=== PATIENT | female | born 1965 | race Caucasian/White ===

== ENCOUNTER 2024-07-14 20:14 | Emergency (ER) | payer OTHER, SELFPAY ==
[2024-07-14 20:16] VITALS: PULSE 93; O2SAT 99; BMI 21.6
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
[2024-07-14 20:33] VITALS: BP 135/87; PULSE 102; RESP 18; TEMP 36.8; O2SAT 99
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
[2024-07-14 23:21] VITALS: BP 145/67; PULSE 67; RESP 19; TEMP 36.6; O2SAT 99
== END 2024-07-14 23:21 | disposition home or self-care (01) ==
PROVIDERS: Emergency Provider Emergency Medicine; PCP Family Medicine
DX: R51.9 Headache, unspecified (principal); R42 Dizziness and giddiness; M54.2 Cervicalgia; M54.9 Dorsalgia, unspecified; V43.52XA Car driver injured in collision with other type car in traffic accident, initial encounter; Y92.410 Unspecified street and highway as the place of occurrence of the external cause
CPT/HCPCS: 70450; 71250; 72125; 74176; 99284

== ENCOUNTER → 2024-10-10 | Outpatient (CLI) | payer OTHER, SELFPAY ==
[2024-10-10 12:02] LABS: Basophils # (Auto) 0.1 Thou/mm3 (0.0-0.2); Basophils % (Auto) 1 % (0-2.5); Eosinophils # (Auto) 0.8 Thou/mm3 (0.0-0.5); Eosinophils % (Auto) 14 % (0-10); Hematocrit 38.8 % (36.0-46.0); Hemoglobin 13.1 g/dL (12.0-16.0); Immature Granulocytes % (Auto) 0 % (0-0); Immature Granulocytes Auto 0.01 Thou/mm3 (0.00-0.00); Lymphocytes # (Auto) 1.6 Thou/mm3 (1.0-4.8); Lymphocytes % (Auto) 30 % (10-50); Mean Corpuscular HGB Conc 33.8 g/dl (31.0-37.0); Mean Corpuscular Volume 86 fL (80-100); Monocytes # (Auto) 0.5 Thou/mm3 (0.0-0.8); Monocytes % (Auto) 9 % (0-12); Neutrophils # (Auto) 2.4 Thou/mm3 (1.8-7.7); Neutrophils % (Auto) 45 % (37-80); Nucleated Red Blood Cell % 0 /100 WBC (0); Platelet Count 231 Thou/mm3 (140-440); Red Blood Count 4.52 Miln/mm3 (4.00-5.20); White Blood Count 5.4 Thou/mm3 (3.6-11.0)
[2024-10-10 12:13] LABS: Glucose Estimated Average 120 mg/dL (80-131); Hemoglobin A1C 5.8 % Hgb (4.8-6.0)
[2024-10-10 12:23] LABS: Alanine Aminotransferase 24 U/L (10-49); Albumin, Serum 4.3 gm/dL (3.4-4.8); Alkaline Phosphatase 62 U/L (46-116); Anion Gap 10 (7-16); Aspartate Amino Transferase 22 U/L (0-34); BUN/Creatinine Ratio 20 Ratio (12-20); Bilirubin,Total 1.4 mg/dL (0.3-1.2); Blood Urea Nitrogen 16 mg/dL (9-23); Calcium 9.4 mg/dL (8.3-10.6); Calcium (Corrected) 9.4 mg/dL (8.5-10.1); Carbon Dioxide 26.7 mMol/L (20.0-31.0); Cardiac Risk Estimate 3.7 RATIO (3.7-5.6); Chloride 103 mMol/L (98-107); Cholesterol 229 mg/dL (132-200); Creatinine (Component) 0.8 mg/dL (0.6-1.3); Globulin 2.1 gm/dL (2.3-3.5); Glucose 101 mg/dL (74-106); HDL Cholesterol 62 mg/dL (40-60); LDL Cholesterol,Calculated 152 mg/dL (0-130); Osmolality,Calculated 280 (275-295); Potassium 4.4 mMol/L (3.4-5.1); Sodium 140 mMol/L (136-145); Thyroid Stimulating Hormone 1.17 uIU/mL (0.55-4.78); Total Protein 6.4 gm/dL (5.7-8.2); Triglycerides 77 mg/dL (30-150); eGFR > 60 See Note
[2024-10-10 12:59] LABS: Hepatitis A Antibody IgM Non Reactive (Non React); Hepatitis B Core Antibody IgM Non Reactive (Non React); Hepatitis B Surface Antigen Non Reactive (Non React); Hepatitis C Antibody Non Reactive (Non React)
== END | disposition home or self-care (01) ==
PROVIDERS: PCP Family Medicine; Referring Provider Internal Medicine Endocrinology, Diabetes & Metabolism; Visit Provider Nurse Practitioner Family
DX: R73.03 Prediabetes (principal); E04.1 Nontoxic single thyroid nodule; Z11.59 Encounter for screening for other viral diseases
CPT/HCPCS: 36415; 80053; 80061; 80074; 83036; 84443; 85025

== ENCOUNTER 2024-12-07 16:17 | Emergency (ER) | payer OTHER, SELFPAY ==
[2024-12-07 16:32] VITALS: PULSE 94; RESP 20; O2SAT 99; BMI 21.6
[2024-12-07 16:45] VITALS: BP 137/85; PULSE 87; RESP 18; TEMP 37.2; O2SAT 96
--- NOTE | 2024-12-07 17:19 | PD.EDRME ---
Rapid Medical Screening Exam RME Arrival date/time: 12/07/24 16:17 Chief Complaint: General Adult/Misc Complain Time Seen by Provider: 12/07/24 16:40 Vital signs: Vital Signs Temperature 98.9 F 12/07/24 16:45 Pulse Rate 87 12/07/24 16:45 Respiratory Rate 18 12/07/24 16:45 Blood Pressure 137/85 H 12/07/24 16:45 Pulse Oximetry (%) 96 12/07/24 16:45 Oxygen Delivery Method Room Air 12/07/24 16:45 Vital signs reviewed by provider: Yes RME Narrative: 59-year-old female presents to the ED with a complaint of difficulty swallowing, shortness of breath and epigastric pain secondary to taking a new supplement medication. The supplement includes chromium, Cure Chrome and turmeric. Directions on the bottle indicate 2 tablets twice daily with the largest meals. She states she is prediabetic and is trying to do everything possible to stay out of the diabetes category. She is following a website that indicates she should be taking 5 tablets daily so today she took those 5 tablets with very little food intake. She denies any vomiting. She has also had a recent URI and her primary care physician prescribed Zithromax which she completed yesterday.
--- NOTE | 2024-12-07 17:21 | XR_ITS ---
Examination: PA lateral chest 2 views Technique: Upright PA lateral chest 2 views Exam date and time: December 07, 2024, 1805 hrs. Comparison March 23, 2022 Indications: Shortness of breath, palpitations today. Findings: Moderate hyperexpansion No pulmonary edema No lobar pneumonia Normal heart size Impression: Moderate hyperexpansion No lobar pneumonia or pulmonary edema
[2024-12-07 18:18] LABS: Collection Type, Urine Clean Catch; Squamous Epithelial Cell,Urine 0 /hpf (0-5)
[2024-12-07 18:19] LABS: Basophils # (Auto) 0.1 Thou/mm3 (0.0-0.2); Basophils % (Auto) 1 % (0-2.5); Eosinophils # (Auto) 0.5 Thou/mm3 (0.0-0.5); Eosinophils % (Auto) 8 % (0-10); Hematocrit 37.2 % (36.0-46.0); Hemoglobin 12.5 g/dL (12.0-16.0); Immature Granulocytes % (Auto) 1 % (0-0); Immature Granulocytes Auto 0.05 Thou/mm3 (0.00-0.00); Lymphocytes # (Auto) 1.5 Thou/mm3 (1.0-4.8); Lymphocytes % (Auto) 25 % (10-50); Mean Corpuscular HGB Conc 33.6 g/dl (31.0-37.0); Mean Corpuscular Hemoglobin 28.9 pg (25.0-35.0); Mean Corpuscular Volume 86 fL (80-100); Monocytes # (Auto) 0.4 Thou/mm3 (0.0-0.8); Monocytes % (Auto) 7 % (0-12); Neutrophils # (Auto) 3.5 Thou/mm3 (1.8-7.7); Neutrophils % (Auto) 59 % (37-80); Nucleated Red Blood Cell % 0 /100 WBC (0); Platelet Count 271 Thou/mm3 (140-440); RDW Standard Deviation 39.6 fL (36.4-46.3); Red Blood Count 4.33 Miln/mm3 (4.00-5.20); White Blood Count 5.9 Thou/mm3 (3.6-11.0)
[2024-12-07 18:23] LABS: Bilirubin,Urine Negative (Negative); Blood,Urine Negative (Negative); Clarity,Urine Clear (Clear/Hazy); Color,Urine Colorless (Lt Yel-Yel); Glucose, Urine Negative (Negative); Ketones,Urine Negative (Negative); Leukocyte Esterase,Urine Negative (Negative); Nitrite,Urine Negative (Negative); PH,Urine 6.5 (5.0-7.0); Protein,Urine Negative (Neg - Trace); RBC,Urine 1 /hpf (0-3); Specific Gravity,Urine 1.006 (1.001-1.035); Urobilinogen,Urine Negative mg/dL (0.0-1.0); WBC,Urine < 1 /hpf (0-5)
[2024-12-07 18:51] LABS: Alanine Aminotransferase 24 U/L (10-49); Albumin, Serum 4.5 gm/dL (3.4-4.8); Albumin/Globulin Ratio 1.8 (1.2-2.2); Alkaline Phosphatase 70 U/L (46-116); Anion Gap 8 (7-16); Aspartate Amino Transferase 33 U/L (0-34); BUN/Creatinine Ratio 24 Ratio (12-20); Bilirubin,Total 0.4 mg/dL (0.3-1.2); Blood Urea Nitrogen 17 mg/dL (9-23); Calcium 9.5 mg/dL (8.3-10.6); Calcium (Corrected) 9.5 mg/dL (8.5-10.1); Chloride 98 mMol/L (98-107); Creatinine (Component) 0.7 mg/dL (0.6-1.3); Estimated Creatinine Clearance 76.9 mL/min (>60); Globulin 2.5 gm/dL (2.3-3.5); Glucose 125 mg/dL (74-106); Osmolality,Calculated 270 (275-295); Potassium 3.8 mMol/L (3.4-5.1); Sodium 134 mMol/L (136-145); Thyroid Stimulating Hormone 0.92 uIU/mL (0.55-4.78); eGFR > 60 See Note
[2024-12-07 20:36] LABS: T4 (Thyroxine) 9.4 mcg/dL (4.5-10.9)
--- NOTE | 2025-02-17 11:31 | PD.EDADULT ---
ED General RME/HPI General Chief complaint: General Adult/Misc Complain Stated complaint: ILL Time Seen by Provider: 12/07/24 16:40 Arrival date/time: 12/07/24 16:17 RME / HPI RME / HPI narrative: 59-year-old female presents to the ED with a complaint of difficulty swallowing, shortness of breath and epigastric pain secondary to taking a new supplement medication. The supplement includes chromium, Curcumin, and turmeric. Directions on the bottle indicate 2 tablets twice daily with the largest meals. She states she is prediabetic and is trying to do everything possible to stay out of the diabetes category. She is following a website that indicates she should be taking 5 tablets daily so today she took those 5 tablets with very little food intake. She denies any vomiting. She has also had a recent URI and her primary care physician prescribed Zithromax which she completed yesterday. Related Data Home Medications ?Medication ?Instructions ?Recorded ?Confirmed No Known Home Medications 08/28/22 04/02/23 Allergies Allergy/AdvReac Type Severity Reaction Status Date / Time No Known Allergies Allergy Verified 12/07/24 16:32 Review of Systems Review of Systems Systems Reviewed: All systems reviewed, normal except as documented Past Medical History Past Medical History NEUROLOGIC: Negative Neurological Disorders or Seizures CARDIAC: Negative Cardiac Disorders or Congestive Heart Failure RESPIRATORY: Negative Chronic Obstructive Pulmonary Disease (COPD) or Asthma GASTROINTESTINAL: Negative Gastrointestinal Disorders GENITOURINARY: Negative Genitourinary Disorders or Renal Disease REPRODUCTIVE: Negative Pelvic Inflammatory Disease MUSCULOSKELETAL: Positive Arthritis ENDOCRINE: Negative Endocrine Disorders (THYROID NODULE), Diabetes Mellitus Type 1 or Diabetes Mellitus Type 2 HEMATOLOGIC: Negative Blood Disorders or Sickle Cell Disease PSYCHO/SOCIAL: Positive Anxiety OTHER HISTORY: Positive Chicken Pox; Negative Hospitalization, Autoimmune Disease, Falls, Blood Transfusions, Anesthesia Reactions, Chemotherapy or Cancer Surgical History SURGICAL: Positive Eye Surgery (RIGHT EYE) and Tubal Ligation; Negative Abdominal Surgery, Nephrectomy, Joint Replacement or Neurologic Surgery Social History SMOKING STATUS: Never smoker SUBSTANCE USE: does not use ED Exam Narrative Physical exam: Alert and oriented 60-year-old female, no acute distress. Vital signs blood pressure 137/85, pulse 87, respirations 18 and nonlabored, temp 98.9, O2 sat 96% on room air. Lungs are clear, regular rate and rhythm without murmurs. Abdominal exam reveals positive bowel sounds x 4, soft, mild epigastric tenderness without rebound or guarding, no right lower quadrant tenderness. No CVA tenderness. Moves all extremities well. Course Course Course Narrative: CBC is normal without signs of infection or anemia. CMP pertinent positives include minimally low sodium of 134, glucose 125, normal LFTs, normal TSH/T4. Urinalysis without signs of infection. XR Chest Negative. Quality Measures none Orders Category Date Time Status XR chest 2V Stat Exams 12/07/24 17:21 Completed CBC Stat Lab 12/07/24 17:44 Completed CMP [Comprehensive Metabolic Panel] Stat Lab 12/07/24 17:44 Completed T4 (Thyroxine) Stat Lab 12/07/24 17:44 Completed TSH [Thyroid Stimulating Hormone] Stat Lab 12/07/24 17:44 Completed Urinalysis Stat Lab 12/07/24 17:51 Completed Urine Culture Stat Lab 12/07/24 17:51 Completed Vital Signs Vital signs: Vital Signs Temperature 98.9 F 12/07/24 16:45 Pulse Rate 87 12/07/24 16:45 Respiratory Rate 18 12/07/24 16:45 Blood Pressure 137/85 H 12/07/24 16:45 Pulse Oximetry (%) 96 12/07/24 16:45 Oxygen Delivery Method Room Air 12/07/24 16:45 Discharge Plan Plan Patient Disposition: HOME (Self Care) Prescriptions/Referrals Prescriptions/Med Rec: No Action No Known Home Medications Referrals: Nirmala Aguilar MD [Primary Care Provider] - In 1 week Problem List Clinical Impression: Adverse effect of herbal medication Patient/Caregiver Discharge Instructions Other Activity Instructions:: Discussed all supplement medication with your primary care physician before taking these supplements. Do not take more than the recommended dose. This medication also recommended taking with a large meal. Education Materials: ED Drug Reaction, Other Additional Instructions: Follow-up with your primary care physician in 24 to 48 hours. Return to the ED for any new or worsening symptoms. Print Language: Yoruba Stand Alone Forms: [employer] Award Info., Patient Portal Info Letter PA/INSPECTOR [employer] Supervising Physician PA/[employer] Supervising Physician: Dr Michell IYER Narrative [facility] hospital course: Diagnostics performed indicate no medical issue that would cause her symptoms. Her diagnosis is likely an adverse effect of an herbal medication. Clinical Information Provided by patient Medical Records Reviewed [facility] Meds/Rx Considered, not Ordered None Labs/Rad/Tests considered, not Ordered None Chronic Illness/Social Conditions which may negatively complicate care or outcome(s)-explain: None or not applicable EKG EKG not done Lab Interpretation Labs: interpreted by me Imaging Imaging interpretation: see narrative above Radiology reports / interpretation(s): XR Chest: Impression: Moderate hyperexpansion No lobar pneumonia or pulmonary edema Medication Administration(s) none Diagnosis Differential diagnosis: Dehydration, UTI, pneumonia, hyperthyroidism, adverse effect of herbal medi Most likely dx, and/or detailed dx discussion: Adverse effect of herbal medication Dispositon Disposition: Discharge Home
== END 2024-12-07 20:09 | disposition home or self-care (01) ==
PROVIDERS: Physician Assistant; Emergency Provider Family Medicine; PCP Family Medicine
DX: R13.10 Dysphagia, unspecified (principal); R06.02 Shortness of breath; R10.13 Epigastric pain; T45.2X5A Adverse effect of vitamins, initial encounter
CPT/HCPCS: 36415; 71046; 80053; 81001; 84436; 84443; 85025; 87086; 99283

== ENCOUNTER 2025-03-24 10:46 | Emergency (ER) | payer OTHER, SELFPAY ==
[2025-03-24 10:47] VITALS: BMI 20.9
--- NOTE | 2025-03-24 11:37 | EDNOTE_ITS ---
<Statement entered by Jackie Frausto MD - 03/25/25 07:10> As co-signing physician, I was present and available for consult prn. I concur with the plan and care as documented by the midlevel provider. ED General RME/HPI General Chief complaint: General Adult/Misc Complain Stated complaint: DOESN'T FEEL WELL AFTER BOTOX [place] 03/02 Time Seen by Provider: 03/24/25 11:37 Source: patient Arrival date/time: 03/24/25 10:46 Mode of arrival: ambulatory Limitations: no limitations RME / HPI RME / HPI narrative: 60-year-old female presents with a complaint of sensation to the area of her right eye, when an injectable toxin Daxxify. This occurred March 02. Onset (ago): week(s) Related Data Previous Rx's ?Medication ?Instructions ?Recorded meclizine 25 mg tablet 25 mg PO TID #20 tabs Allergies Allergy/AdvReac Type Severity Reaction Status Date / Time PPI Allergy Severe Headache Uncoded 03/24/25 10:56 Review of Systems Constitutional Constitutional: Reports system reviewed and no additional complaints, except as documented Eyes Eyes: Reports system reviewed and no additional complaints, except as documented, Denies dry eyes, Denies exophthalmos and Reports floaters Cardiovascular Cardiovascular: Denies chest pain with activity and Denies claudication ED Exam Narrative Physical exam: The right eye when compared to the left eye is asymmetrical. Patient is able to close both eyes. EOMs are intact and looking extreme left and right causes pain to the right and left eye. General Limitations: Present no limitations General appearance: Present alert and in no apparent distress Head Head exam: Present atraumatic Eye Eye exam: Present normal appearance, PERRL and EOMI ENT ENT exam: Present normal exam, normal oropharynx and mucous membranes moist Neck Neck exam: Present normal inspection, full ROM and trachea midline Extremities Exam Extremities exam: Present normal inspection and full ROM Back Exam Back exam: Present normal inspection and full ROM Neurological Exam Neurological exam: Present alert and oriented X3 Psychiatric Psychiatric exam: Present normal affect and normal mood Skin Skin exam: Present warm, dry, intact and normal color Course Course Course Narrative: CBC, CMP Quality Measures none (na) Orders Category Date Time Status CBC Stat Lab 03/24/25 11:58 Completed CMP [Comprehensive Metabolic Panel] Stat Lab 03/24/25 11:58 Completed DONE Vital Signs Vital signs: Vital Signs Temperature 98.5 F 03/24/25 11:38 Pulse Rate 79 03/24/25 11:38 Respiratory Rate 18 03/24/25 11:38 Blood Pressure 136/84 H 03/24/25 11:38 Pulse Oximetry (%) 97 03/24/25 11:38 Oxygen Delivery Method Room Air 03/24/25 11:38 Pulse ox is 97% room air Discharge Plan Plan Patient Disposition: HOME (Self Care) Discharge Disposition comment: Patient is discharged in no apparent distress Patient condition on transfer: Stable Prescriptions/Referrals Prescriptions/Med Rec: New meclizine 25 mg tablet 25 mg PO TID Qty: 20 0RF Referrals: Nirmala Aguilar MD [Primary Care Provider] - In 1 week Problem List Clinical Impression: Dizziness Impression comment: Vertigo Patient/Caregiver Discharge Instructions Print Language: Austrian Stand Alone Forms: Cindy Award Info., Patient Portal Info Letter MDM Narrative MDM hospital course: Patient will be discharged in no apparent distress and I will prescribe meclizine to the pharmacy of her choice. If she is worse then she is to return here for follow-up to today's visit. Otherwise she has to follow-up with her broommaker or and primary care physician within this week if possible Clinical Information Provided by patient Medical Records Reviewed None Meds/Rx Considered, not Ordered None Labs/Rad/Tests considered, not Ordered None Chronic Illness/Social Conditions which may negatively complicate care or outcome(s)-explain: None or not applicable EKG EKG not done Lab Interpretation Labs: none Imaging Imaging interpretation: none Medication Administration(s) none Diagnosis Differential diagnosis: Vertigo versus headache versus subarachnoid versus meningitis versus CVA Dispositon Disposition: Discharge Home
[2025-03-24 11:38] VITALS: BP 136/84; PULSE 79; RESP 18; TEMP 36.9; O2SAT 97
[2025-03-24 12:26] LABS: Basophils # (Auto) 0.1 Thou/mm3 (0.0-0.2); Basophils % (Auto) 1 % (0-2.5); Eosinophils # (Auto) 0.0 Thou/mm3 (0.0-0.5); Eosinophils % (Auto) 1 % (0-10); Hematocrit 41.1 % (36.0-46.0); Hemoglobin 13.3 g/dL (12.0-16.0); Immature Granulocytes Auto 0.02 Thou/mm3 (0.00-0.00); Lymphocytes # (Auto) 1.2 Thou/mm3 (1.0-4.8); Lymphocytes % (Auto) 22 % (10-50); Mean Corpuscular HGB Conc 32.4 g/dl (31.0-37.0); Mean Corpuscular Hemoglobin 28.9 pg (25.0-35.0); Mean Corpuscular Volume 89 fL (80-100); Monocytes # (Auto) 0.5 Thou/mm3 (0.0-0.8); Monocytes % (Auto) 9 % (0-12); Neutrophils # (Auto) 3.7 Thou/mm3 (1.8-7.7); Neutrophils % (Auto) 67 % (37-80); Nucleated Red Blood Cell # 0.00 Thou/mm3 (0.00-0.00); Nucleated Red Blood Cell % 0 /100 WBC (0); Platelet Count 232 Thou/mm3 (140-440); RDW Standard Deviation 43.3 fL (36.4-46.3); Red Blood Count 4.61 Miln/mm3 (4.00-5.20); White Blood Count 5.5 Thou/mm3 (3.6-11.0)
[2025-03-24 12:54] LABS: Alanine Aminotransferase 14 U/L (10-49); Albumin, Serum 4.7 gm/dL (3.4-4.8); Albumin/Globulin Ratio 2.1 (1.2-2.2); Alkaline Phosphatase 57 U/L (46-116); Anion Gap 9 (7-16); Aspartate Amino Transferase 17 U/L (0-34); BUN/Creatinine Ratio 20 Ratio (12-20); Bilirubin,Total 1.0 mg/dL (0.3-1.2); Blood Urea Nitrogen 14 mg/dL (9-23); Calcium 9.5 mg/dL (8.3-10.6); Calcium (Corrected) 9.5 mg/dL (8.5-10.1); Carbon Dioxide 27.8 mMol/L (20.0-31.0); Chloride 103 mMol/L (98-107); Creatinine (Component) 0.7 mg/dL (0.6-1.3); Estimated Creatinine Clearance 75.9 mL/min (>60); Globulin 2.2 gm/dL (2.3-3.5); Glucose 109 mg/dL (74-106); Osmolality,Calculated 280 (275-295); Potassium 3.9 mMol/L (3.4-5.1); Sodium 140 mMol/L (136-145); Total Protein 6.9 gm/dL (5.7-8.2); eGFR > 60 See Note
--- NOTE | 2025-03-24 12:57 | PC.NURSE ---
ALL RESULTS ARE IN. NOTE LEFT IN COMMENTS FOR PROVIDER TO REVIEW.
== END 2025-03-24 14:30 | disposition home or self-care (01) ==
PROVIDERS: Physician Assistant; Emergency Provider Emergency Medicine; PCP Family Medicine
DX: R42 Dizziness and giddiness (principal)
CPT/HCPCS: 36415; 80053; 85025; 99282

== ENCOUNTER 2025-04-01 13:49 | Emergency (ER) | payer OTHER, SELFPAY ==
[2025-04-01 13:50] VITALS: BP 157/89; PULSE 95; RESP 19; TEMP 36.8; O2SAT 98; BMI 21.7
[2025-04-01 13:57] VITALS: PULSE 96; O2SAT 98
--- NOTE | 2025-04-01 15:29 | PD.EDRME ---
Rapid Medical Screening Exam RME Arrival date/time: 04/01/25 13:49 Time Seen by Provider: 04/01/25 15:50 Vital signs: Vital Signs Temperature 98.3 F 04/01/25 13:50 Pulse Rate 95 04/01/25 13:50 Respiratory Rate 19 04/01/25 13:50 Blood Pressure 157/89 H 04/01/25 13:50 Pulse Oximetry (%) 98 04/01/25 13:50 Oxygen Delivery Method Room Air 04/01/25 13:50 Pulse ox is 98% room air Vital signs reviewed by provider: Yes RME Narrative: 60-year-old female show for concern for Botox that he is injecting or had injected into certain sites for face which she believes is causing her harm. Also tells me that fish oil capsules race her heart.
[2025-04-01 15:57] LABS: Basophils # (Auto) 0.1 Thou/mm3 (0.0-0.2); Basophils % (Auto) 1 % (0-2.5); Eosinophils # (Auto) 0.0 Thou/mm3 (0.0-0.5); Eosinophils % (Auto) 0 % (0-10); Hematocrit 42.8 % (36.0-46.0); Hemoglobin 14.4 g/dL (12.0-16.0); Immature Granulocytes Auto 0.02 Thou/mm3 (0.00-0.00); Lymphocytes # (Auto) 1.4 Thou/mm3 (1.0-4.8); Lymphocytes % (Auto) 16 % (10-50); Mean Corpuscular HGB Conc 33.6 g/dl (31.0-37.0); Mean Corpuscular Hemoglobin 29.3 pg (25.0-35.0); Mean Corpuscular Volume 87 fL (80-100); Monocytes # (Auto) 0.6 Thou/mm3 (0.0-0.8); Monocytes % (Auto) 7 % (0-12); Neutrophils # (Auto) 6.6 Thou/mm3 (1.8-7.7); Neutrophils % (Auto) 76 % (37-80); Nucleated Red Blood Cell # 0.00 Thou/mm3 (0.00-0.00); Nucleated Red Blood Cell % 0 /100 WBC (0); Platelet Count 272 Thou/mm3 (140-440); RDW Standard Deviation 41.4 fL (36.4-46.3); Red Blood Count 4.91 Miln/mm3 (4.00-5.20); White Blood Count 8.8 Thou/mm3 (3.6-11.0)
[2025-04-01 16:13] LABS: Sed Rate (ESR) 10 mm/hr (0-30)
[2025-04-01 16:18] LABS: Collection Type, Urine Clean Catch; WBC,Urine 0 /hpf (0-5)
[2025-04-01 16:25] LABS: Bilirubin,Urine Negative (Negative); Blood,Urine Trace (Negative); Clarity,Urine Clear (Clear/Hazy); Color,Urine Colorless (Lt Yel-Yel); Glucose, Urine Negative (Negative); Ketones,Urine Trace (Negative); Leukocyte Esterase,Urine Negative (Negative); Nitrite,Urine Negative (Negative); PH,Urine 6.5 (5.0-7.0); Protein,Urine Negative (Neg - Trace); RBC,Urine < 1 /hpf (0-3); Specific Gravity,Urine 1.004 (1.001-1.035); Squamous Epithelial Cell,Urine < 1 /hpf (0-5); Urobilinogen,Urine Negative mg/dL (0.0-1.0)
[2025-04-01 16:26] LABS: Alanine Aminotransferase 11 U/L (10-49); Albumin, Serum 4.7 gm/dL (3.4-4.8); Albumin/Globulin Ratio 2.0 (1.2-2.2); Alkaline Phosphatase 61 U/L (46-116); Anion Gap 11 (7-16); Aspartate Amino Transferase 17 U/L (0-34); BUN/Creatinine Ratio 13 Ratio (12-20); Bilirubin,Total 1.3 mg/dL (0.3-1.2); Blood Urea Nitrogen 10 mg/dL (9-23); Calcium 10.8 mg/dL (8.3-10.6); Calcium (Corrected) 10.8 mg/dL (8.5-10.1); Carbon Dioxide 26.9 mMol/L (20.0-31.0); Chloride 98 mMol/L (98-107); Creatinine (Component) 0.8 mg/dL (0.6-1.3); Estimated Creatinine Clearance 69.1 mL/min (>60); Globulin 2.3 gm/dL (2.3-3.5); Glucose 108 mg/dL (74-106); Osmolality,Calculated 271 (275-295); Potassium 3.6 mMol/L (3.4-5.1); Procalcitonin 0.06 ng/ml (0.0-0.49); Sodium 136 mMol/L (136-145); Total Protein 7.0 gm/dL (5.7-8.2); eGFR > 60 See Note
--- NOTE | 2025-04-01 16:33 | EDNOTE_ITS ---
ED General RME/HPI General Stated complaint: ANXIETY Time Seen by Provider: 04/01/25 15:50 Arrival date/time: 04/01/25 13:49 RME / HPI RME / HPI narrative: 60-year-old female show for concern for Botox that he is injecting or had injected into certain sites for face which she believes is causing her harm. Also tells me that fish oil capsules race her heart. DR. BOWMAN MAIN ED EVALUATION 60 year old female presents to the ED for evaluation of dizziness beginning several days ago. Reports she gets botox injections frequently. However, on 03/02/2025 her injector used a different treatment called Daxxify that was injected below the eyes and on forehead. States she is concerned the Daxxify may have been injected into her muscle causing her symptoms. Additionally reports she had a headache last night that was improved with Tylenol. Denies fevers, chills, chest pain, cough, sore throat, n/v/d, or urinary symptoms. Denies any changes to vision. Related Data Previous Rx's ?Medication ?Instructions ?Recorded meclizine 25 mg tablet 25 mg PO TID #20 tabs meclizine 25 mg tablet 25 mg PO TID PRN dizziness # 14 tabs 04/01/25 Allergies Allergy/AdvReac Type Severity Reaction Status Date / Time PPI Allergy Severe Headache Uncoded 04/01/25 13:57 Review of Systems Review of Systems Systems Reviewed: All systems reviewed, normal except as documented Past Medical History Past Medical History MUSCULOSKELETAL: Positive Arthritis PSYCHO/SOCIAL: Positive Anxiety OTHER HISTORY: Positive Chicken Pox Surgical History SURGICAL: Positive Eye Surgery (RIGHT EYE) and Tubal Ligation Social History SMOKING STATUS: Never smoker SUBSTANCE USE: does not use ED Exam Narrative Physical exam: Constitutional: Awake, alert, nontoxic, no acute distress HEENT: NC, AT, EOMI, slight ptosis R eyelid Neck: Supple CV: RRR, no m/r/g Lungs: CTAB, no w/r/r, no respiratory distress. Abd: Soft, NT, NT, no HSM noted to palpation Extremities: No deformities, no edema noted Neuro: AAOx3, CN 2-12 GIBL, no acute neuro deficit noted. Normal gait, Romberg negative, rapid alternating hand movement, finger to nose intact bilaterally Skin: Warm, dry, intact Course Course Course Narrative: 1702h: Patient's labs reviewed?CBC, CMP, urinalysis. No significant acute abnormalities noted. Patient is vitally stable, generally benign exam. Some of the symptoms that she is having to her face are likely secondary to the injection that she received previously. No indication for further emergent workup or treatment at this time. May consider holding off on further injections of this sort in the future. Stable for dc. Quality Measures none Orders Category Date Time Status CBC Stat Lab 04/01/25 15:46 Completed Comprehensive Metabolic Panel Stat Lab 04/01/25 15:46 Completed Procalcitonin Stat Lab 04/01/25 15:46 Completed Sed Rate (ESR) Stat Lab 04/01/25 15:46 Completed Urinalysis Stat Lab 04/01/25 15:50 Completed Vital Signs Vital signs: Vital Signs Temperature 98.3 F 04/01/25 13:50 Pulse Rate 95 04/01/25 13:50 Respiratory Rate 19 04/01/25 13:50 Blood Pressure 157/89 H 04/01/25 13:50 Pulse Oximetry (%) 98 04/01/25 13:50 Oxygen Delivery Method Room Air 04/01/25 13:50 Pulse ox is 98% on room air which is adequate. Critical Care Time Critical Care Time Critical Care Time: No Discharge Plan Plan Patient Disposition: HOME (Self Care) Patient condition on transfer: Stable Prescriptions/Referrals Prescriptions/Med Rec: New meclizine 25 mg tablet 25 mg PO TID PRN (Reason: dizziness) Qty: 14 0RF No Action meclizine 25 mg tablet 25 mg PO TID Qty: 20 0RF Referrals: Nirmala Aguilar MD [Primary Care Provider] - In 1 week Problem List Clinical Impression: Dizziness Patient/Caregiver Discharge Instructions Education Materials: ED Dizziness, Uncertain Cause Print Language: Slovenian Stand Alone Forms: Cindy Award Info., Patient Portal Info Letter MDM Narrative [facility] hospital course: Marilyn Yan am scribing for and in the presence of Dr. Bowman. Clinical Information Provided by patient Medical Records Reviewed [facility] I reviewed ED visit on 03/24/2025 for dizziness Meds/Rx Considered, not Ordered None Labs/Rad/Tests considered, not Ordered None Chronic Illness/Social Conditions which may negatively complicate care or outcome(s)-explain: None or not applicable EKG EKG not done Lab Interpretation Labs: interpreted by ri Lab(s) interpretation(s): CBC and CMP are unremarkable, UA negative for infection Imaging Imaging interpretation: none Medication Administration(s) none Diagnosis Most likely dx, and/or detailed dx discussion: Dizziness Dispositon Disposition: Discharge Home
== END 2025-04-01 18:14 | disposition home or self-care (01) ==
PROVIDERS: Physician Assistant; Emergency Provider Family Medicine; PCP Family Medicine
DX: R42 Dizziness and giddiness (principal)
CPT/HCPCS: 36415; 80053; 81001; 84145; 85025; 85652; 99283

== ENCOUNTER → 2025-06-19 | Outpatient (CLI) | payer OTHER, SELFPAY ==
[2025-06-19 14:43] LABS: Coccid Serology, CF CSF (UCD)* See Sep Rpt; Misc Send Out* See Sep Rpt
[2025-06-19 15:15] LABS: Glucose,CSF 64 mg/dL (40-70); Protein Total,CSF 34 mg/dL (8-32)
[2025-06-19 15:58] LABS: CSF Cell Count Tube # Tube # 4; CSF Color Colorless (Colorless); CSF, Appearance Clear (Clear)
[2025-06-19 15:59] LABS: CSF Red Blood Cell 228 /cmm; CSF White Blood Cell 0 /cmm
[2025-06-19 17:23] LABS: CSF Gram Stain Alert Gram Stain Completed
[2025-06-25 22:05] LABS: Albumin, CSF 14.6 mg/dL (8.0-42.0); IgG Index, CSF 0.43 (<0.70); IgG, CSF 1.3 mg/dL (0.8-7.7); IgG, Serum 918 mg/dL (600-1540); Synthesis Rate IgG, CSF -3.9 mg/24 h (-9.9 TO +3.3)
[2025-06-26 06:34] LABS: Albumin, Serum 4.4 g/dL (3.6-5.1); VDRL, CSF Qual* NON-REACTIVE
[2025-07-03 06:23] LABS: Angiotensin Convert Enz, CSF* <5 U/L (< OR = 15); Myelin Basic Protein, CSF* <2.0 mcg/L (< OR = 4.0); Oligoclonal Bands, CSF* ABSENT (ABSENT)
== END | disposition home or self-care (01) ==
LOC: COPL 14:29
PROVIDERS: PCP Family Medicine; Referring Provider Psychiatry & Neurology Neurology; Visit Provider Psychiatry & Neurology Neurology
DX: G37.9 Demyelinating disease of central nervous system, unspecified (principal)
CPT/HCPCS: 36415; 82040; 82042; 82164; 82784; 82945; 83873; 83916; 84157; 86171; 86592; 87070; 87205; 89051

== ENCOUNTER → 2025-06-25 | Outpatient (CLI) | payer OTHER, SELFPAY ==
--- NOTE | 2025-06-25 14:15 | XR_ITS ---
Examination: Screening digital mammography, bilateral Computer aided detection 3-D breast Tomosynthesis, bilateral Date and time of exam: 06/25/2025, 1:49 p.m. Comparisons: 06/20/2024 Indications: Screening Technique: Nonmagnified MLO, CC views of the breasts to been obtained, reconstructed from 3-D Tomosynthesis images. R2 computer aided detection program utilized for evaluation of suspicious masses and/or abnormal calcifications. 3-D Tomosynthesis images obtained. Technologist: Findings: There are scattered areas of fibroglandular density. No evidence of abnormal masses or suspicious calcifications. Impression: BI-RADS category 1: Negative findings (within normal) Recommend 1 year follow-up mammogram
== END | disposition home or self-care (01) ==
LOC: CDIM 13:40
PROVIDERS: Referring Provider Physician Assistant; Visit Provider Physician Assistant
DX: Z12.31 Encounter for screening mammogram for malignant neoplasm of breast (principal); R92.313 Mammographic fatty tissue density, bilateral breasts
CPT/HCPCS: 77063; 77067